=== PATIENT | female | born 1950 | race Caucasian/White ===

== ENCOUNTER 2017-03-17 11:30 | Emergency (ER) | payer MEDICARE ==
[~2017-03-17] VITALS: Ht 157.5 cm; Wt 91.0 kg
[2017-03-17 11:31] VITALS: BP 155/84; PULSE 92; RESP 15; TEMP 99.3; O2SAT 98
[2017-03-17] MEDS ORDERED: ZYRTEC PO (12:42)
[2017-03-17] MEDS ORDERED: PRED20 PO (12:42)
[2017-03-17] MEDS ORDERED: ZANT300T PO (12:42)
[2017-03-17] MEDS ORDERED: TRIAM.1%T TOPICAL (12:42)
--- NOTE | 2017-03-17 12:43 | PD ---
HPI Chief Complaint: Skin Problem Time Seen by Provider: 12:30 Travel History International Travel<30 days: No Contact w/Intl Traveler<30days: No Traveled to known affect area: No History of Present Illness HPI 66-year-old female complains of itching Rash on both arms. Patient states that the symptoms started several days ago. Patient is not sure of exposure. Patient has been taking Benadryl intermittently for rash and itching. Patient denies any problem with swallowing. Patient denies any chest pain or shortness of breath. PFSH Past Medical History ?: Not Past Surgical History Hysterectomy: Yes Social History Alcohol Use: No Tobacco Use: No Substance Use: No Allergies-Medications (Allergen,Severity, Reaction): Coded Allergies: aspirin (Verified Allergy, Severe, Anaphylaxis, 03/17/17) penicillin G (Verified Allergy, Severe, Anaphylaxis, 03/17/17) Review of Systems General / Constitutional: No: Fever Eyes: No: Visual changes HENT: No: Headaches Cardiovascular: No: Chest Pain or Discomfort Respiratory: No: Shortness of Breath Gastrointestinal: No: Abdominal Pain Genitourinary: No: Dysuria Musculoskeletal: No: Pain Skin: Positive Rash, Positive Itching Neurologic: No: Weakness Psychiatric: No: Depression Endocrine: No: Polydipsia Hematologic/Lymphatic: No: Easy Bruising Physical Exam Narrative GENERAL: Well-nourished, well-developed patient. SKIN: Focused skin assessment warm/dry. Patient has diffuse fine papular rash over the hands and forearms bilaterally. HEAD: Normocephalic. EYES: No scleral icterus. No injection or drainage. NECK: Supple, trachea midline. No JVD or lymphadenopathy. CARDIOVASCULAR: Regular rate and rhythm without murmurs, gallops, or rubs. RESPIRATORY: Breath sounds equal bilaterally. No accessory muscle use. GASTROINTESTINAL: Abdomen soft, non-tender, nondistended. MUSCULOSKELETAL: No cyanosis, or edema. BACK: Nontender without obvious deformity. No CVA tenderness. Data Data Last Documented VS Vital Signs Date Time Temp Pulse Resp B/P (MAP) Pulse Ox O2 Delivery O2 Flow Rate FiO2 03/17/17 11:31 99.3 92 15 155/84 (107) 98 Orders Orders Diphenhydramine (Benadryl) (03/17/17 12:45) Dexamethasone Inj (Decadron Inj) (03/17/17 12:45) MDM Medical Decision Making Medical Screen Exam Complete: Yes Emergency Medical Condition: Yes Differential Diagnosis Differential diagnosis including contact dermatitis, allergic dermatitis, scabies. Narrative Course 66-year-old female with itching rash on the arms and hands. Decadron 8 mg IM. Benadryl 25 mg by mouth. Diagnosis Primary Impression: Contact dermatitis Qualified Codes: L23.9 - Allergic contact dermatitis, unspecified cause Patient Instructions: General Instructions Additional Instructions: Take medications as directed. Follow-up with personal physician. Return if worse. Med/Other Pt SpecificInfo: Prescription(s) given Scripts Ranitidine (Zantac) 300 Mg Tab 300 MG PO DAILY, #10 TAB 0 Refills Prov: Williams Fernandez MD 03/17/17 [[facility]] No Conflict Check 1 TAB PO DAILY, #14 Prov: Williams Fernandez MD 03/17/17 Prednisone (Prednisone) 20 Mg Tab 20 MG PO BID, #14 TAB 0 Refills Prov: Williams Fernandez MD 03/17/17 Triamcinolone Topical (Triamcinolone Topical) 0.1 % Oint 1 APPLIC TOPICAL BID for Inflammation, #15 GM 0 Refills Prov: Williams Fernandez MD 03/17/17 Disposition: 01 DISCHARGE HOME Condition: Stable Williams Fernandez MD Mar 17, 2017 12:43
[2017-03-17] MEDS ORDERED: DEXAMETHASONE SOD PHOS 4 MG/ML VIAL IM ONE (12:45)
[2017-03-17] MEDS ORDERED: diphenhydrAMINE HCL 25 MG CAP PO ONE (12:45)
== END 2017-03-17 13:12 | disposition home or self-care (01) ==
LOC: NEPD 11:30
DX: L23.9 Allergic contact dermatitis, unspecified cause (principal)
CPT/HCPCS: 96372; 99284; J1100

== ENCOUNTER 2017-04-12 19:50 | Emergency (ER) | payer MEDICARE ==
[~2017-04-12] VITALS: Ht 157.5 cm; Wt 80.0 kg
[~2017-04-12 19:50] MED LIST: PRED20 PO; TRIAM.1%T TOPICAL; ZANT300T PO; ZYRTEC PO
[2017-04-12 19:51] VITALS: BP 137/70; PULSE 91; RESP 18; TEMP 98.5; O2SAT 98
== END 2017-04-12 22:12 | disposition left against medical advice (07) ==
LOC: NED 19:50
DX: R05 Cough (principal); Z53.21 Procedure and treatment not carried out due to patient leaving prior to being seen by health care provider
CPT/HCPCS: 99281